=== PATIENT | female | born 1945 | race Caucasian/White ===

== ENCOUNTER 2017-01-10 07:01 | Day surgery (SDC) | payer OTHER ==
[~2017-01-10 07:01] MED LIST: AMIO200T PO; AMIO400T2 PO; APIX5TAB PO; LEVO100T4 PO; LISI-363 PO; METO25CR PO
[2017-01-10] MEDS ORDERED: CHLORHEXIDINE GLUCONATE 2 % 1 PACK (2 CLOTHS) TOPICAL PRN (08:00)
[2017-01-10] MEDS ORDERED: INSULIN HUMAN REGULAR 1,000 UNITS/10 ML VIAL SQ PRN (08:00)
[2017-01-10] MEDS ORDERED: SODIUM CHLORID 0.9% 500 ML IV PRN (08:00)
[2017-01-10] MEDS ORDERED: LACTATED RINGER'S 1000 ML IV PRN (08:00)
[2017-01-10] MEDS ORDERED: METOPROLOL TARTRATE 25 MG TAB PO PRN (08:00)
[2017-01-10] MEDS ORDERED: POVIDONE IODINE 5% (ANTISEPSIS KIT) 4 APPLICATIONS EACH NARE PRN (08:00)
[2017-01-10] MEDS ORDERED: LOSA50TA PO (08:09)
[2017-01-10] MEDS ORDERED: PROPOFOL 200 MG/20 ML AMP IV ONE ×2 (08:37→08:43)
[2017-01-10] MEDS ORDERED: AMLO10TA2 PO (11:10)
--- NOTE | 2017-01-10 11:20 | MA ---
cc: BENJAMIN CALLEJAS M.D. DATE 01/10/2017 PROCEDURE PERFORMED Cardioversion INDICATIONS Mrs. Velez is a 71-year-old female with atrial fibrillation, previous ablation who will undergo cardioversion. The risks, the nature and the benefit of the procedure are clearly stated to her. The risks include cardiac arrest, need for endotracheal intubation, need for pacing support and even . She understood and agreed to proceed. PROCEDURE After written informed consent was obtained, the patient was brought to the recovery room where she was evaluate by anesthesiologist. Anterolateral pads were placed. Subsequently, a 200 sync biphasic joule was delivered that converted the patient into sinus rhythm. At that point, procedure was complete. Patient fully recuperated from anesthesia. She will be discharged home later today. Her blood pressure medication will be modified. No incident report. CONCLUSION Successful cardioversion COMMENT AND RECOMMENDATIONS As mentioned before, the patient is going to be discharged home. Blood pressure high. Medication will be modified. MD FERMIN Valentine/RERE /11:09 AM /11:18 AM
--- NOTE | 2017-01-10 16:47 | EKG ---
Date Performed: 01/10/2017 Time Performed: 07:36:28 PTAGE: 71 years EKG: Possible atrial flutter with slow ventricular response Prolonged QT interval Leftward axis Possible anterior infarct - age undetermined Inferior/lateral ST-T changes are nonspecific Abnormal E CG Compared to PREVIOUS TRACING of 06/27/2016, atrial flutter with slow ventricular response has replac ed Sinus rhythm . PREVIOUS TRACIN06/27/2016 04.03 DOCTOR: Sonu Weller Interpretating Date/Time 01/10/2017 16:45:59
== END 2017-01-10 11:45 | disposition home or self-care (01) ==
LOC: HBDO 07:01 → HDIC 07:02 → HBDO 11:45
PROVIDERS: ATTEND Internal Medicine Interventional Cardiology
DX: I48.91 Unspecified atrial fibrillation (principal); R00.2 Palpitations; I44.0 Atrioventricular block, first degree; I10 Essential (primary) hypertension; E03.9 Hypothyroidism, unspecified; E66.9 Obesity, unspecified
CPT/HCPCS: 92960; 93005